=== PATIENT | male | born 1955 | race Caucasian/White ===

== ENCOUNTER 2023-03-24 13:03 | Outpatient (RCR) | payer MEDICARE, OTHER, SELFPAY | END 2023-03-24 23:59 | disposition home or self-care (01) | LOC: RPT 13:03 | PROVIDERS: ATTENDING PHYSICIAN Neurological Surgery; FAMILY PHYSICIAN Family Medicine | DX: G95.9 Disease of spinal cord, unspecified (principal); Z73.6 Limitation of activities due to disability; M62.81 Muscle weakness (generalized); M54.2 Cervicalgia; R20.2 Paresthesia of skin; R20.0 Anesthesia of skin; R26.89 Other abnormalities of gait and mobility; M43.22 Fusion of spine, cervical region | CPT/HCPCS: 97110; 97112; 97162 ==

== ENCOUNTER 2023-04-27 13:59 | Outpatient (RCR) | payer MEDICARE, OTHER, SELFPAY | END 2023-04-27 23:59 | disposition home or self-care (01) | LOC: RPT 13:59 | PROVIDERS: ATTENDING PHYSICIAN Neurological Surgery; FAMILY PHYSICIAN Family Medicine | DX: G95.9 Disease of spinal cord, unspecified (principal); Z73.6 Limitation of activities due to disability; Z98.890 Other specified postprocedural states | CPT/HCPCS: 97110; 97112 ==

== ENCOUNTER → 2023-07-01 14:14 | Outpatient (REF) | payer MEDICARE, OTHER, SELFPAY | LOC: RAD 14:14 | PROVIDERS: ATTENDING PHYSICIAN Nurse Practitioner Acute Care | DX: Z98.1 Arthrodesis status (principal) | CPT/HCPCS: 72040 ==

== ENCOUNTER 2023-07-27 12:06 | Outpatient (RCR) | payer MEDICARE, OTHER, SELFPAY | END 2023-07-27 23:59 | disposition home or self-care (01) | LOC: RPT 12:06 | PROVIDERS: ATTENDING PHYSICIAN Neurological Surgery; FAMILY PHYSICIAN Family Medicine | DX: G95.9 Disease of spinal cord, unspecified (principal); R26.89 Other abnormalities of gait and mobility | CPT/HCPCS: 97110; 97112; 97162 ==

== ENCOUNTER → 2023-08-20 10:59 | Outpatient (REF) | payer MEDICARE, OTHER, SELFPAY | LOC: RAD 10:59 | PROVIDERS: ATTENDING PHYSICIAN Family Medicine; FAMILY PHYSICIAN Family Medicine | DX: R05.1 Acute cough (principal) | CPT/HCPCS: 71046 ==

== ENCOUNTER 2023-08-25 07:07 | Outpatient (RCR) | payer MEDICARE, OTHER, SELFPAY | END 2023-08-25 23:59 | disposition home or self-care (01) | LOC: RPT 07:07 | PROVIDERS: ATTENDING PHYSICIAN Neurological Surgery; FAMILY PHYSICIAN Family Medicine | DX: G95.9 Disease of spinal cord, unspecified (principal); R26.89 Other abnormalities of gait and mobility | CPT/HCPCS: 97110; 97112 ==

== ENCOUNTER 2023-09-21 12:14 | Outpatient (RCR) | payer MEDICARE, OTHER, SELFPAY | END 2023-09-21 23:59 | disposition home or self-care (01) | LOC: RPT 12:14 | PROVIDERS: ATTENDING PHYSICIAN Neurological Surgery; FAMILY PHYSICIAN Family Medicine | DX: G95.9 Disease of spinal cord, unspecified (principal); R26.89 Other abnormalities of gait and mobility | CPT/HCPCS: 97110; 97112 ==

== ENCOUNTER → 2023-09-29 12:26 | Outpatient (REF) | payer MEDICARE, OTHER, SELFPAY | LOC: RAD 12:26 | PROVIDERS: ATTENDING PHYSICIAN Neurological Surgery; FAMILY PHYSICIAN Family Medicine | DX: G95.9 Disease of spinal cord, unspecified (principal) | CPT/HCPCS: 72050 ==

== ENCOUNTER → 2023-10-26 15:20 | Outpatient (REF) | payer MEDICARE, OTHER, SELFPAY | LOC: RAD 15:20 | PROVIDERS: ATTENDING PHYSICIAN Family Medicine | DX: M76.61 Achilles tendinitis, right leg (principal) | CPT/HCPCS: 73610 ==

== ENCOUNTER 2023-10-28 16:00 | Outpatient (RCR) | payer MEDICARE, OTHER, SELFPAY | END 2023-10-28 23:59 | disposition home or self-care (01) | LOC: RPT 16:00 | PROVIDERS: ATTENDING PHYSICIAN Neurological Surgery; FAMILY PHYSICIAN Family Medicine | DX: R26.89 Other abnormalities of gait and mobility (principal); G95.89 Other specified diseases of spinal cord; Z98.1 Arthrodesis status | CPT/HCPCS: 97110; 97112 ==

== ENCOUNTER 2023-11-25 11:57 | Outpatient (RCR) | payer MEDICARE, OTHER, SELFPAY | END 2023-11-25 23:59 | disposition home or self-care (01) | LOC: RPT 11:57 | PROVIDERS: ATTENDING PHYSICIAN Neurological Surgery; FAMILY PHYSICIAN Family Medicine | DX: G95.9 Disease of spinal cord, unspecified (principal); R26.89 Other abnormalities of gait and mobility; R26.2 Difficulty in walking, not elsewhere classified; M62.81 Muscle weakness (generalized); R20.0 Anesthesia of skin; R20.2 Paresthesia of skin; Z73.6 Limitation of activities due to disability | CPT/HCPCS: 97110; 97112 ==

== ENCOUNTER 2023-12-09 09:01 | Outpatient (RCR) | payer MEDICARE, OTHER, SELFPAY | END 2023-12-09 23:59 | disposition home or self-care (01) | LOC: RPT 09:01 | PROVIDERS: ATTENDING PHYSICIAN Neurological Surgery; FAMILY PHYSICIAN Family Medicine | DX: R26.89 Other abnormalities of gait and mobility (principal); G95.9 Disease of spinal cord, unspecified | CPT/HCPCS: 97110 ==

== ENCOUNTER → 2024-01-24 16:38 | Outpatient (REF) | payer MEDICARE, OTHER, SELFPAY | LOC: RAD 16:38 | PROVIDERS: ATTENDING PHYSICIAN Family Medicine | DX: M54.16 Radiculopathy, lumbar region (principal); M25.551 Pain in right hip | CPT/HCPCS: 73522 ==

== ENCOUNTER → 2024-05-30 10:46 | Outpatient (REF) | payer MEDICARE, OTHER, SELFPAY | LOC: RAD 10:46 | PROVIDERS: ATTENDING PHYSICIAN Internal Medicine | DX: Z13.6 Encounter for screening for cardiovascular disorders (principal) | CPT/HCPCS: 76770 ==